=== PATIENT | male | born 1980 | race Caucasian/White ===

== ENCOUNTER 2020-07-07 10:56 | Emergency (ER) | payer OTHER ==
[~2020-07-07] VITALS: Ht 177.8 cm; Wt 92.5 kg
[2020-07-07] MEDS ORDERED: CRESTOR10 MG (11:00)
[2020-07-07] MEDS ORDERED: NASAL MIST126 ML (11:00)
[2020-07-07] MEDS ORDERED: LIPITOR40 M1 (11:00)
== END 2020-07-07 13:30 | disposition home or self-care (01) ==
LOC: ER 10:56
DX: U07.1 COVID-19 (principal); B34.9 Viral infection, unspecified